=== PATIENT | male | born 1990 | race Caucasian/White ===

== ENCOUNTER 2018-11-02 21:09 | Emergency (ER) | payer BC, SELFPAY ==
[2018-11-02 21:11] VITALS: BP 159/81; PULSE 72; RESP 18; TEMP 36.6; O2SAT 96; BMI 33.0
--- NOTE | 2018-11-02 21:15 | ED.DCSUM_ITS ---
- ER Visit Summary Date of Service: 11/02/18 Chief Complaint: Right knee injury History of Present Illness: The patient is a 28 M presents to the emergency department right knee injury. Patient was playing basketball. He states that he planted to jump. Something pop in his knee and he went down. Since then, he has been unable to extend the knee. He denies other injury. He did not strike his head. The patient is otherwise healthy. He takes no daily medications. Physical Examination: Patient does have an effusion of the right knee. His patella is high riding. He is unable to extend. He has tenderness over the distal patellar insertion. His pulses are normal. Drawer exam is unable to be done secondary to patient's pain. Test Results: [] Emergency Department Course and Treatment: Clinically, the patient symptoms are consistent with a patellar tendon rupture. Plain films were obtained which showed evidence of fracture. I discussed the patient with Dr. Krishnan for close follow-up as the patient is likely going to need operative fixation. He is placed in a knee immobilizer and given analgesics. He will be discharged home with orthopedic follow-up. Treatment Plan: [] Disposition: Discharge Impression: 1. Right patellar tendon rupture This note was generated with [employer] dictation software. It may contain incorrect words, spelling, and punctuation that were not noted in review of the chart prior to signing ED Disposition - Plan for ED Patient: Disposition: Home or Assisted Living Instructions: ED Immobilizer Knee Prescriptions: Hydrocodone Bitart/Apap 5-325 [Story 5MG-325MG] 1 tab PO Q6H PRN PRN 3 Days #10 tab PRN Reason: Pain Referrals: Ab Krishnan MD [STAFF PHYSICIAN] -
[2018-11-02] MEDS: HYDROcodone Bitartrate/Apap 5/325 Tablet PO ×2 (21:17→21:51)
--- NOTE | 2018-11-02 21:19 | RAD_ITS ---
STUDY: X-RAY - RIGHT KNEE REASON FOR EXAM: Male, 28 years old. Trauma TECHNIQUE: 3 view(s) of the knee. COMPARISON: None. FINDINGS: Normal visualized distal femur. Normal visualized proximal tibia and fibula. Normal proximal tibiofibular articulation. Normal medial femorotibial compartment. Normal lateral femorotibial compartment. Patella linda is noted, suspicious for patellar tendon rupture. There is no evidence of patellar fracture. The soft tissue structures are unremarkable. RAD/Knee 3 Views IMPRESSION: Patella linda is noted, suspicious for patellar tendon rupture. MRI is recommended for further evaluation. Electronically Signed: Luis Armando oLpez MD at 21:55 EST , Service support ,
[2018-11-02 22:04] VITALS: BP 155/78; PULSE 70; RESP 18; O2SAT 99
== END 2018-11-02 22:08 | disposition home or self-care (01) ==
LOC: ED 21:57
PROVIDERS: Emergency Provider Emergency Medicine; Family Provider Family Medicine; PCP Family Medicine
DX: S86.811A Strain of other muscle(s) and tendon(s) at lower leg level, right leg, initial encounter (principal); W01.0XXA Fall on same level from slipping, tripping and stumbling without subsequent striking against object, initial encounter; Y93.67 Activity, basketball; Y92.9 Unspecified place or not applicable; Y99.8 Other external cause status
CPT/HCPCS: 73562; 99283

== ENCOUNTER 2018-11-11 09:15 | Day surgery (SDC) | payer BC, SELFPAY ==
[2018-11-11 09:32] VITALS: BP 125/71; PULSE 52; RESP 16; TEMP 36.4; O2SAT 98; BMI 34.1
[2018-11-11] MEDS: Cefazolin 2 GM in 0.9% Normal Saline 100 ML IV (11:37)
[2018-11-11] MEDS: Ketorolac 30 MG/ML Syringe IV (12:15)
--- NOTE | 2018-11-11 12:31 | PCM.OPRPT ---
Report of Operation Date of Procedure: 11/11/18 Pre-Operative Diagnosis: Right patella tendon rupture Post-Operative Diagnosis: Right patella tendon rupture Surgery/Procedure Performed:: Right patella tendon repair Description of Surgical Findings:: Rupture from the distal pole of the patella direct repair using bone tunnels alberene stone setter: Arline Romero Type of Anesthesia:: General Anesthesiologist: Jayce Mckeon Special Medications: 2 g Ancef Estimated Blood Loss (mL): 10 Fluids Replaced: 800 mL crystalloid Description of Procedure: Procedure: On the date of procedure patient's right lower extremity is was marked in the preoperative area. The patient was then taken back to the operating room where they were placed on the table in the supine position. All bony prominences were identified a well-padded. Anesthesia assumed control of the C-spine and airway and remained controlled throughout the remainder of the procedure. A tourniquet was placed on the right upper thigh and the right leg was prepped in a sterile fashion. The surgeon scrubbed at this time. Upon reentering the room the right extremity was draped in a standard orthopedic fashion. A timeout was then called and everyone agreed upon the side, the site, the procedure to be performed, patient's identity and antibiotics given. Attention was directed to the right leg where a midline incision was made. Dissection was taken down through skin, subcutaneous tissues and fat. At this point we were able to identify the rupture and got a gush of serosanguineous fluid. The wound was copiously irrigated with normal saline. The distal aspect of the patella was debrided and the bone was rongeured to prepare a fresh tissue bed. Allis clamps were then placed on the patella tendon was pulled approximately. 2 #5 FiberWire's were used to place 2 Krak?w stitches giving us all 4 suture limbs. At this time #0 Vicryls were then used to repair the retinaculum but left untied. A short Beath pin was then used to drill 3 bone tunnels and passed the suture limbs. 2 suture limbs were placed through the central tunnel. The #1 Vicryls were then tied to repair the retinaculum and take stress off the tendon repair. The central limbs of the FiberWire were then tunneled under the tendon and firmly tied over bone tunnels to the outter limbs medially and laterally. Finally a #1 Vicryl runner was used to sew the retinacular repair over the central portion of the tendon. The tendon repair was stressed and did not see stress until 30 degrees of flexion.The wound was irrigated out with normal saline. Skin was closed with 2-0 Vicryl and arlene. A sterile compressive dressing was placed. A TROM brace was then placed on the operative extremity locked in extension. Patient was awakened by anesthesia and transferred to the [facility] then taken to the PACU for recovery. Post op plan PT: WBAT with TROM brace locked in extension 6 weeks. Brace: locked in extension until first post op visit. At first visit patient should have 1 PT visit with brace opened to 0-30 flexion with flexion advanced 15 degrees per week. Patient may also start quad sets and straight leg raises at first visit. Goal is 90 degrees of flexion at 6 weeks. Will begin strengthening at 6 weeks. Prior to 6 weeks pt only allowed active flexion and passive extension. Follow up: 2 weeks for wound check and removal of arlene - Complications None - Admit VTE Documentation VTE Present on Admission: No VTE Mechan Device Prophylaxis: SCD's, Thigh High NICK Hose VTE Pharm Prophylaxis ordered?: Yes
--- NOTE | 2018-11-11 12:38 | OP.PCM_ITS ---
Report of Operation Date of Procedure: 11/11/18 Pre-Operative Diagnosis: Right patella tendon rupture Post-Operative Diagnosis: Right patella tendon rupture Surgery/Procedure Performed:: Right patella tendon repair Description of Surgical Findings:: Rupture from the distal pole of the patella direct repair using bone tunnels legal research analyst: Arline Romero Type of Anesthesia:: General Anesthesiologist: Jayce Mckeon Special Medications: 2 g Ancef Estimated Blood Loss (mL): 10 Fluids Replaced: 800 mL crystalloid Description of Procedure: Procedure: On the date of procedure patient's right lower extremity is was marked in the preoperative area. The patient was then taken back to the operating room where they were placed on the table in the supine position. All bony prominences were identified a well-padded. Anesthesia assumed control of the C-spine and airway and remained controlled throughout the remainder of the procedure. A tourniquet was placed on the right upper thigh and the right leg was prepped in a sterile fashion. The surgeon scrubbed at this time. Upon reentering the room the right extremity was draped in a standard orthopedic fashion. A timeout was then called and everyone agreed upon the side, the site, the procedure to be performed, p atient's identity and antibiotics given. Attention was directed to the right leg where a midline incision was made. Dissection was taken down through skin, subcutaneous tissues and fat. At this point we were able to identify the rupture and got a gush of serosanguineous fluid. The wound was copiously irrigated with normal saline. The distal aspect of the patella was debrided and the bone was rongeured to prepare a fresh tissue bed. Allis clamps were then placed on the patella tendon was pulled approximately. 2 #5 FiberWire's were used to place 2 Krak?w stitches giving us all 4 suture limbs. At this time #0 Vicryls were then used to repair the retinaculum but left untied. A short Beath pin was then used to drill 3 bone tunnels and passed the suture limbs. 2 suture limbs were placed through the central tunnel. The #1 Vicryls were then tied to repair the retinaculum and take stress off the tendon repair. The central limbs of the FiberWire were then tunneled under the tendon and firmly tied over bone tunnels to the outter limbs medially and laterally. Finally a #1 Vicryl runner was used to sew the retinacular repair over the central portion of the tendon. The tendon repair was stressed and did not see stress until 30 degrees of flexion.The wound was irrigated out with normal saline. Skin was closed with 2-0 Vicryl and arlene. A sterile compressive dressing was placed. A TROM brace was then placed on the operative extremity locked in extension. Patient was awakened by anesthesia and transferred [place] [facility] [place] taken to the PACU for recovery. Post op plan PT: WBAT with TROM brace locked in extension 6 weeks. Brace: locked in extension until first post op visit. At first visit patient should have 1 PT visit with brace opened to 0-30 flexion with flexion advanced 15 degrees per week. Patient may also start quad sets and straight leg raises at first visit. Goal is 90 degrees of flexion at 6 weeks. Will begin strengthening at 6 weeks. Prior to 6 weeks pt only allowed active flexion and passive extension. Follow up: 2 weeks for wound check and removal of arlene - Complications None - Admit VTE Documentation VTE Present on Admission: No VTE Mechan Device Prophylaxis: SCD's, Thigh High NICK Hose VTE Pharm Prophylaxis ordered?: Yes
[2018-11-11 12:47] VITALS: BP 108/57; BP 125/71; PULSE 71; RESP 16; TEMP 36.6; O2SAT 92
[2018-11-11 13:01] VITALS: BP 105/56; BP 125/71; PULSE 58; RESP 16; O2SAT 93
[2018-11-11 13:16] VITALS: BP 109/49; BP 125/71; PULSE 52; RESP 16; O2SAT 94
[2018-11-11 13:30] VITALS: BP 122/85; BP 125/71; PULSE 52; RESP 16; TEMP 36.2; O2SAT 93
[2018-11-11] MEDS: oxyCODONE 5 MG Tablet PO (15:18)
[2018-11-11] MEDS: Acetaminophen 500 MG Tablet 1000 MG PO (15:19)
[2018-11-11 15:21] VITALS: BP 104/57; BP 125/71; PULSE 45; RESP 18; TEMP 36.7; O2SAT 95
== END 2018-11-11 15:31 | disposition home or self-care (01) ==
LOC: SDC 09:18 → AC 09:19
PROVIDERS: Family Provider Family Medicine; PCP Family Medicine; Referring Provider Specialist; Visit Provider Specialist
PROC: (CPT 27380; principal; 2018-11-11 11:00)
DX: S76.111A Strain of right quadriceps muscle, fascia and tendon, initial encounter (principal); E66.3 Overweight; Z68.33 Body mass index [BMI] 33.0-33.9, adult; Z87.891 Personal history of nicotine dependence
CPT/HCPCS: 27380; J7120; J2405

== ENCOUNTER → 2019-05-06 16:25 | Outpatient (CLI) | payer OTHER, SELFPAY ==
--- NOTE | 2019-05-06 16:32 | RAD_ITS ---
STUDY: X-RAY - RIGHT HAND REASON FOR EXAM: Male, 29 years old. Injury TECHNIQUE: 3 view(s) of the hand. COMPARISON: None. FINDINGS: Oblique mildly displaced fracture of the midshaft fourth metacarpal. Remainder of the right hand is within normal limits. RAD/Hand Min 3 Views IMPRESSION: As above Electronically Signed: Francisco Bullock DO at 17:02 EDT Tel , Service support ,
== END ==
PROVIDERS: Family Provider Family Medicine; PCP Family Medicine; Referring Provider Family Medicine; Visit Provider Family Medicine
DX: M79.89 Other specified soft tissue disorders (principal); M79.641 Pain in right hand
CPT/HCPCS: 73130

== ENCOUNTER → 2023-03-24 | Outpatient (CLI) | payer BC, SELFPAY ==
--- NOTE | 2023-03-24 09:08 | RAD_ITS ---
EXAM: XR LEFT KNEE COMPLETE, 4 OR MORE VIEWS CLINICAL INDICATION: PAIN TECHNIQUE: Four or more views of the left knee. COMPARISON: Right knee radiographs of 11/02/2018. FINDINGS: BONES/JOINTS: Unremarkable. No acute fracture. No subluxation. Normal alignment. Preservation of the joint space. No sclerotic or destructive changes observed. SOFT TISSUES: Unremarkable. No soft tissue swelling or gas. No radiopaque foreign body. RAD/Knee 4 or More Views IMPRESSION: Negative left knee x-rays. Electronically Signed: Se Fallon MD at 23:44 EDT ,
[2023-03-24 10:01] LABS: Absolute Lymphocyte Count 2.33 X10^3/uL (0.83-4.51); Absolute Neutrophil Count 1.6 X10^3/uL (2.0-7.7); Basophil# 0.04 X10^3/uL; Basophil% 0.9 % (0-1); Eosinophil# 0.14 X10^3/uL; Hematocrit 46.6 % (40-54); Hemoglobin 15.6 g/dL (13.0-16.5); Lymphocyte # 2.33 X10^3/ul (0.83-4.51); Lymphocyte % 50.4 % (19-41); Mean Corp Hgb Conc 33.5 g/dL (32-36); Mean Corpuscular Volume 92.5 fL (80-94); Mean Platelet Vol. 10.8 fl (6.2-12.0); Monocyte# 0.52 X10^3/uL; Monocyte% 11.3 % (0-10); NRBC Flagged by Analyzer 0 % (0-5); Neutrophil # 1.59 X10^3/uL (2.7-7.7); Neutrophil % 34.4 % (47-70); Platelet Count 224 K/mm3 (150-450); RBC Distribution Width SD 40.9 fl (35.1-43.9); Red Blood Count 5.04 M/mm3 (4.6-6.2); White Blood Count 4.6 K/mm3 (4.4-11.0)
[2023-03-24 10:50] LABS: ALB/GLOB Ratio 1.1 RATIO (0.9-2.4); AST(SGOT) 27 U/L (15-37); Alanine Aminotransfer ALT/SGPT 53 U/L (16-61); Albumin, Serum 3.7 g/dL (3.2-5.0); Alkaline Phosphatase 66 U/L (45-117); Anion Gap 3 (5-15); BUN 15 mg/dL (7-18); BUN/Creat Ratio 14.2 RATIO (10-20); Calcium,Total 8.9 mg/dL (8.5-10.1); Chloride 107 mmol/L (98-107); Cholesterol 213 mg/dL (200); Creatinine, Serum 1.06 mg/dL (0.70-1.30); EST Glomerular Filtration Rate 86 mL/min (>60); Est Glom Filt Rate - Afr Amer 104 mL/min (>60); Globulin 3.5 g/dL (2.2-4.2); Glucose 87 mg/dL (74-106); High Density Lipoprotein 42 mg/dL; Protein, Total 7.2 g/dL (6.4-8.2); Sodium Level 138 mmol/L (136-145); T4 Free Direct 0.83 ng/dL (0.76-1.46); Thyroid Stim Hormone (TSH) 1.31 uIU/mL (0.358-3.74); Triglycerides 137 mg/dL; Very Low Density Lipoprotein 27 mg/dL (5-40)
== END | disposition home or self-care (01) ==
LOC: MTLAB 08:59
PROVIDERS: PCP Family Medicine; Referring Provider Family Medicine; Visit Provider Family Medicine
DX: Z00.00 Encounter for general adult medical examination without abnormal findings (principal); R53.83 Other fatigue
CPT/HCPCS: 36415; 73564; 80053; 80061; 84403; 84439; 84443; 85025